=== PATIENT | male | born 1950 | race Caucasian/White ===

== ENCOUNTER → 2019-04-21 08:46 | Outpatient (CLI) | payer OTHER, SELFPAY ==
[2019-04-21 10:55] LABS: Cholesterol 220 mg/dL (140-199); HDL Cholesterol 79 mg/dL (40-60); LDL Cholesterol Calculated 129 mg/dL (<100); Triglycerides 61 mg/dL (35-150)
[2019-04-21 11:26] LABS: Prostate Specific Antigen 5.56 ng/mL (0.10-4.00)
== END ==
PROVIDERS: PCP Family Medicine; Visit Provider Family Medicine
DX: E78.5 Hyperlipidemia, unspecified (principal); Z12.5 Encounter for screening for malignant neoplasm of prostate
CPT/HCPCS: 36415; 80061; 84153

== ENCOUNTER → 2020-03-31 16:29 | Outpatient (ROUT) | payer OTHER, SELFPAY ==
[2020-03-31 17:13] LABS: Prothrombin Time 11.1 SECONDS (10.1-12.7)
== END ==
PROVIDERS: PCP Family Medicine; Visit Provider Family Medicine
DX: R04.0 Epistaxis (principal); I10 Essential (primary) hypertension
CPT/HCPCS: 85610

== ENCOUNTER → 2020-06-21 15:21 | Outpatient (CLI) | payer OTHER, SELFPAY ==
[2020-06-21 16:44] LABS: COVID19 -Nasal RAPID Negative (Negative)
== END ==
PROVIDERS: PCP Family Medicine; Visit Provider Physician Assistant
DX: Z11.59 Encounter for screening for other viral diseases (principal)
CPT/HCPCS: 87635

== ENCOUNTER 2020-06-23 12:56 | Day surgery (SDC) | payer OTHER, SELFPAY ==
[2020-06-23] VITALS (7 sets, daily range): BP systolic 120–159; BP diastolic 69–89; PULSE 64–80; RESP 12–18; TEMP 36.2–36.9; O2SAT 98–100; BMI 22.3
--- NOTE | 2020-06-23 12:27 | PM.HP.1 ---
History of Present Illness History of Present Illness Date Patient Seen: 06/23/20 Chief complaint: SCREENING COLONOSCOPY Narrative: 69 year old male comes in today for consideration of a screening colonoscopy. Last colonoscopy in 2012 significant for a cecal 1 mm tubular adenoma and hyperplastic polyp at 25 cm. There have been no lower GI symptoms suggesting disease such as change in bowel habits, bleeding, abdominal pain or anemia. There's been no family history of colon cancer or colon polyps. Overall health issues have been stable, including no major cardiac events for at least 6 weeks. PCP: Dr. Castillo Past medical history: Hypertension Hyperlipidemia GERD BPH Alcohol abuse Basal cell carcinoma Anemia, macrocytic Dupuytren's contracture Family history: No colon cancer colon polyps Surgical history: Colonoscopy, 2013, polyp x2 Social history: Beverage salesman, . Meds Home Medications and Allergies Home Medications Medication Instructions Recorded Confirmed Type atorvastatin 20 mg PO DAILY 06/23/20 06/23/20 History losartan 25 mg PO DAILY 06/23/20 06/23/20 History tamsulosin 0.4 mg PO DAILY 06/23/20 06/23/20 History Allergies Allergy/AdvReac Type Severity Reaction Status Date / Time No Known Drug Allergies Allergy Verified 06/23/20 13:02 Review of Systems Review of Systems ROS: Yes All systems reviewed with the patient and are negative except as otherwise documented Exam Narrative Exam Narrative: GENERAL: Alert and oriented, appearing stated age and in no acute distress. HEENT: Head normocephalic/atraumatic. Pupils equal, round, and reactive to light and accomodation. Extraocular muscles intact. Tympanic membranes clear. Nasal mucosa moist, septum midline. Oral mucosa moist, no lesions. Neck soft and supple, no lymphadenopathy. LUNGS: Clear to ausculation bilaterally, no wheezes, rhonchi or rales. CV: Normal S1 and S2 with regular rate and rhythm, no audible murmurs, rubs or gallops. ABDOMEN: Soft, non-tender, non-distended, no organomegaly. Positive bowel sounds. EXTREMITIES: No clubbing, cyanosis, or edema. NEURO: Cranial nerves II through XII grossly intact, no focal deficits. PSYCH: Alert and oriented x 3. SKIN: No concerning lesions. Assessment & Plan Assessment & Plan narrative: 1. History of colon polyps 2. Screening for colon cancer Plan for colonoscopy. The nature and character of the procedure as well as anticipated results were discussed. The possibility of not completing the procedure was also discussed. Possible complications including aspiration pneumonia, bleeding, perforation and reaction to medications either for sedation or preparation and missed lesions were discussed. Questions were answered and proceeding to the colonoscopy was elected. Informed consent signed. I sincerely appreciate the referral allowing me to participate in this patient's care. Please contact me with any questions or concerns.
--- NOTE | 2020-06-23 12:32 | PM.OP.ENDO ---
Operative Date/Time/Diagnoses Date of procedure: 06/23/20 Procedure Notes SCOAP/Timeout: 2:49 p.m. Procedure in detail: ENDOSCOPIST: Christy Raza MD Sedation RN: Loretta Starr RN Sedation start time: 2:50 p.m. Sedation end time: 3:08 p.m. PROCEDURE: Colonoscopy INDICATIONS: 1. History of colon polyps 2. Screening for colon cancer MEDICATION: Levsin 0.125 mg sublingual, incremental doses of Versed and fentanyl until appropriate level sedation achieved. ASA CLASS: 2 CECAL WITHDRAWAL TIME: 10 minutes COMPLICATIONS: None. EXTENT OF PROCEDURE: Cecum. QUALITY OF PREP: Good with portions of liquid stool. PROCEDURE: Prior to insertion of the colonoscope, a digital rectal examination was accomplished with circumferential palpation of the distal rectal mucosa without significant findings being noted. The high-definition colonoscope was passed into the rectum in the usual fashion and advanced over to the cecum without difficulty. The ileocecal valve, appendiceal stoma, and medial wall all could be inspected and no abnormalities were seen. ASCENDING COLON: As the colonoscope was withdrawn, care was taken to expose and inspect the haustral folds and no abnormalities were seen. HEPATIC FLEXURE: Normal, no polyps, diverticula or other abnormalities. TRANSVERSE COLON: Normal, no polyps, diverticula or other abnormalities. DESCENDING COLON: Normal, no polyps, diverticula or other abnormalities. SIGMOID COLON: Normal, no polyps, diverticula or other abnormalities. RECTUM: Normal. J maneuver was produced. There was no significant perianal disease. The J maneuver was broken. The remainder of the rectum was inspected and there was [] no external hemorrhoid disease. The scope was withdrawn. IMPRESSION: 1. Normal colonoscopy PLAN: 1. Repeat colonoscopy in 5-10 years. The possibility of a missed lesion including a malignancy has been discussed with the patient previously. Potential alarm symptoms have been discussed and should be reported immediately.
[2020-06-23] MEDS: HYOSCYAMINE 0.125 MG TABLET PO (13:13)
[2020-06-23] MEDS: LACTATED RINGERS 1,000 ML 200 ML IV (13:34)
[2020-06-23] MEDS: fentaNYL 250 MCG/5 ML INJ IV (15:00)
[2020-06-23] MEDS: MIDAZOLAM 5 MG/5 ML VIAL IV (15:01)
== END 2020-06-23 15:49 | disposition home or self-care (01) ==
PROVIDERS: PCP Family Medicine; Referring Provider Student in an Organized Health Care Education/Training Program; Visit Provider Student in an Organized Health Care Education/Training Program
PROC: 0DJD8ZZ Inspection of Lower Intestinal Tract, Via Natural or Artificial Opening Endoscopic (ICD-10-PCS; CPT 45378; principal; 2020-06-23 14:30)
DX: Z12.11 Encounter for screening for malignant neoplasm of colon (principal); Z86.010 Personal history of colon polyps; I10 Essential (primary) hypertension; E78.5 Hyperlipidemia, unspecified; K21.9 Gastro-esophageal reflux disease without esophagitis
CPT/HCPCS: G0105; J2250; J3010

== ENCOUNTER → 2021-04-16 08:54 | Outpatient (CLI) | payer OTHER, SELFPAY ==
[2021-04-16 10:53] LABS: Prostate Specific Antigen 2.59 ng/mL (0.10-4.00)
== END ==
PROVIDERS: Referring Provider Specialist; Visit Provider Specialist
DX: R97.20 Elevated prostate specific antigen [PSA] (principal)
CPT/HCPCS: 36415; 84153

== ENCOUNTER → 2021-08-07 10:13 | Outpatient (CLI) | payer OTHER, SELFPAY ==
[2021-08-07 10:45] LABS: Add Manual Diff / Slide Review NO; Basophils Absolute Auto 100 /uL (0-100); Basophils Percent Auto 1.1 % (0-2); Eosinophils Absolute Auto 300 /uL (0-450); Hematocrit 43.6 % (41-53); Hemoglobin 14.6 g/dL (13.5-17.5); Lymphocytes Absolute Auto 1600 /uL (1100-4500); Lymphocytes Percent Auto 29.7 % (25-40); Mean Corpuscular HGB Conc 33.5 % (30-36); Mean Corpuscular Hemoglobin 34.2 PG (26-34); Mean Corpuscular Volume 102.2 fL (80-100); Monocytes Absolute Auto 600 /uL (0-900); Monocytes Percent Auto 10.9 % (3-14); Neutrophils Absolute Auto 2900 /uL (1500-7000); Neutrophils Percent Auto 53.3 % (50-75); Platelet Count 188 X10^3/uL (150-400); Red Blood Cell Count 4.27 X10^6/uL (4.5-5.9); Red Cell Distribution Width 13.4 % (11.6-14.8); White Blood Cell Count 5.4 X10^3/uL (4.5-11.0)
[2021-08-07 11:01] LABS: Alanine Aminotransferase 22 IU/L (<50); Albumin 4.6 g/dL (3.5-5.0); Albumin Globulin Ratio 1.4 (1.0-2.8); Alkaline Phosphatase 54 U/L (38-126); Aspartate Aminotransferase 31 IU/L (17-59); BUN Creatinine Ratio 13.2 (6-22); Blood Urea Nitrogen 15 mg/dL (9-20); Calcium 9.8 mg/dL (8.4-10.2); Carbon Dioxide 30 mmol/L (22-32); Chloride 105 mmol/L (98-107); Cholesterol 248 mg/dL (140-199); Estimated Glomerular Filt Rate > 60.0 mL/min (>60); Globulin 3.3 g/dL (1.7-4.1); Glucose 111 mg/dL (80-110); HDL Cholesterol 94 mg/dL (40-60); HEMOLYSIS < 15 (0-50); LDL Cholesterol Calculated 140 mg/dL (<100); Potassium 4.5 mmol/L (3.4-5.1); Sodium 142 mmol/L (137-145); Total Protein 7.9 g/dL (6.3-8.2); Triglycerides 70 mg/dL (35-150)
[2021-08-07 11:31] LABS: Prostate Specific Antigen Scrn 2.36 ng/mL (0.1-4.0)
== END ==
PROVIDERS: PCP Family Medicine; Referring Provider Family Medicine; Visit Provider Family Medicine
DX: I10 Essential (primary) hypertension (principal); Z12.5 Encounter for screening for malignant neoplasm of prostate; D64.9 Anemia, unspecified; E78.5 Hyperlipidemia, unspecified
CPT/HCPCS: 36415; 80053; 80061; 84443; 85025; G0103

== ENCOUNTER → 2021-10-16 09:10 | Outpatient (CLI) | payer OTHER, SELFPAY ==
[2021-10-16 11:53] LABS: Prostate Specific Antigen 1.79 ng/mL (0.10-4.00)
== END ==
PROVIDERS: PCP Family Medicine; Referring Provider Specialist; Visit Provider Specialist
DX: N40.1 Benign prostatic hyperplasia with lower urinary tract symptoms (principal); N13.8 Other obstructive and reflux uropathy; R97.20 Elevated prostate specific antigen [PSA]
CPT/HCPCS: 36415; 84153

== ENCOUNTER → 2022-03-04 17:40 | Outpatient (CLI) | payer OTHER, SELFPAY ==
--- NOTE | 2022-03-04 | DI.MRI.S_ITS ---
PROCEDURE: MR STROKE Pre- and post-contrast brain MRI, non-contrast brain MR angiogram, pre- and postcontrast neck MR angiogram INDICATIONS: APHASIA TECHNIQUE: Brain: Noncontrast axial T1 spin echo, axial T2 fast spin echo, sagittal and axial FLAIR, coronal T2 fast spin echo, axial gradient echo, axial diffusion and ADC through the brain. After the administration of contrast, axial 3D VIBE of the cranial vasculature and brain. Brain MRA: Non-contrast 3-D time of flight MR angiogram, with multiple qnxpzup-athdfovga-kujmjrpbod (MIP) reformats performed. Neck MRA: Axial and sagittal TruFISP through the neck. Coronal dynamic MR angiogram during administration of contrast in the arterial and venous phases, with 3-dimenstional vhnzjnk-zenoovxfh-qvyhpqbdjl (MIP) reformats constructed from subtraction images. COMPARISON: None. FINDINGS: Image quality: This examination is limited by involuntary motion artifact. Signal dropout can be seen along the anterior portion this scan. BRAIN: CSF spaces: Ventricles are normal in size and shape. Basal cisterns are patent. No extra-axial fluid collections. Brain: No intracranial bleeds or mass effects. Moralez-white matter interface is normal. Diffusion weighted images show no acute ischemic insults. Brainstem appears normal. Normal intravascular flow voids are present. No abnormal intracranial enhancement. Note is made of age-appropriate brain parenchymal volume loss and chronic small vessel ischemic changes. Skull and face: Calvarial marrow signal is normal. Orbits appear normal. There is an enhancing 8 mm scalp lesion seen on the right superiorly, as on series 35, image 181 and on series 10 image 12. Sinuses: Sinuses and mastoids are clear. BRAIN MR ANGIOGRAM: Anterior circulation: Intracranial internal carotid arteries are normal in size and enhancement. The flow within the paired anterior cerebral arteries is normal and symmetric. The flow within the middle cerebral arteries is normal and symmetric. The anterior communicating artery is seen. No stenoses, occlusions, or aneurysms. Posterior circulation: The visualized portions of the vertebral arteries demonstrate normal caliber, and join to form a normal appearing basilar artery. The flow within the posterior cerebral arteries is normal and symmetric. No stenoses, occlusions, or aneurysms. NECK MR ANGIOGRAM: Carotids: Great vessels demonstrate a conventional anatomy as they arise from the aortic arch. The origins of the common carotid arteries appear patent. The calibers and courses of both common carotid arteries are normal. The bifurcation regions appear normal bilaterally. The internal carotid arteries demonstrate normal course and caliber. Posterior circulation: There is at least 50% narrowing seen involving the origin the left vertebral artery. The right vertebral artery origin is within normal limits. The more distal vertebral arteries are unremarkable. Miscellaneous: Subclavian arteries appear patent. Pre-contrast images through the neck show no soft tissue abnormalities. IMPRESSION: BRAIN MRI: No findings of acute or subacute infarction can be seen. An 8 mm enhancing scalp lesion can be seen on the right superiorly. Please correlate with physical examination findings. BRAIN MR ANGIOGRAM: No significant intracranial arterial abnormality is seen. NECK MR ANGIOGRAM: No significant internal carotid stenosis can be seen. There is at least 50% narrowing seen involving the origin the left vertebral artery. Dictated by: Gilbert Sterling M.D. on 03/04/2022 at 18:47 Approved by: Gilbert Sterling M.D. on 03/04/2022 at 18:52
== END ==
PROVIDERS: PCP Family Medicine; Referring Provider Family Medicine; Visit Provider Family Medicine
DX: I65.02 Occlusion and stenosis of left vertebral artery (principal); R47.01 Aphasia; R20.2 Paresthesia of skin; R22.0 Localized swelling, mass and lump, head
CPT/HCPCS: 70548; 70553

== ENCOUNTER → 2022-03-31 07:55 | Outpatient (CLI) | payer OTHER, SELFPAY ==
--- NOTE | 2022-03-31 07:56 | DI.ECHO.S_ITS ---
[facility] +---------+ : : [address] : [place] : : : : [id number] : : : : Phone: [phone]+ Echocardiogram Report + + :Name: AIDE ESPAÑA Study Date: 03/31/2022 Height: 71 in : :[facility] ReadingLocation: Weight: 170 lb : : Gender: Male BSA: 2.0 m2 : :: 1950 Age: 71 yrs BP: 183/98 mmHg: :Reason For Study: APHASIA : :Ordering Physician: FEDE, : :LUISANA Performed By: Kristy Calderon : :Referring: LUISANA MISTRY : + + Interpretation Summary The left ventricle is normal in size. The ejection fraction is estimated to be 55-60%. The right ventricle is normal in size and function. No significant valvular pathology seen. Mild atherosclerotic plaque(s) in the aortic arch. The IVC is of normal diameter and collapses greater than 50% with a sniff. This suggests a low right atrial pressure of 3 mm Hg. Procedure: A two-dimensional transthoracic echocardiogram with color flow and Doppler was performed. The study quality was technically difficult. There is no prior echocardiogram noted for this patient. The patient was in sinus rhythm with heart rates between 58-68 bpm during the exam. Left Ventricle: The left ventricle is normal in size. Left ventricular wall thickness is mildly increased. There is no thrombus. The ejection fraction is estimated to be 55-60%. There is basal inferior wall hypokinesis. There is basal inferoseptal wall hypokinesis. Diastolic parameters suggest a relaxation abnormality of the left ventricle, consistent with probable normal filling pressures. Right Ventricle: The right ventricle is normal in size and function. Atria: Both atria are normal in size. There is no Doppler evidence for an interatrial shunt. Mitral Valve: There is mild mitral annular calcification. There is trace mitral regurgitation. Aortic Valve: The aortic valve is trileaflet. The aortic valve opens well. There is no aortic valve stenosis. No aortic regurgitation is present. Tricuspid Valve: The tricuspid valve is normal in structure and function. There is trace tricuspid regurgitation. Pulmonary artery pressures cannot be estimated because of the lack of a measurable TR jet velocity. Pulmonic Valve: The pulmonic valve is not well seen, but is grossly normal. There is no pulmonic valvular regurgitation. Great Vessels: The aortic root is normal size. The dimensions of the ascending aorta are normal. Mild atherosclerotic plaque(s) in the aortic arch. The IVC is of normal diameter and collapses greater than 50% with a sniff. This suggests a low right atrial pressure of 3 mm Hg. Pericardium/ Pleura There is no pericardial effusion. There is no pleural effusion. MMode/2D Measurements & Calculations LVIDd: 4.3 cm LVOT diam: 2.3 cm LVIDs: 2.8 cm Ao root diam: 3.5 cm FS: 34.7 % asc Aorta Diam: 3.0 cm EPSS: 0.97 cm Ao Arch Diam (Prox Trans): 3.5 cm IVSd: 1.2 cm LVPWd: 0.82 cm LV lopez. diameter/BSA (cm/m^2): 2.2 LV sys. diameter/BSA (cm/m^2): 1.4 LA A2 area: 19.4 cm2 RA long axis: 4.6 cm LA A4 area: 14.8 cm2 RA area: 14.9 cm2 LA length (vol): 4.5 cm RA vol: 41.1 ml LA vol: 53.9 ml RA : 20.9 ml/m2 LA vol index: 27.4 ml/m2 IVC diam: 1.4 cm RVD1 (basal): 3.5 cm RVD2 (mid): 3.2 cm TAPSE: 1.8 cm Doppler Measurements & Calculations Ao V2 max: 107.7 cm/sec LVOT Max Ammon: 71.8 cm/sec Ao V2 mean: 76.8 cm/sec LV V1 max P.1 mmHg Ao max P.6 mmHg LV V1 VTI: 17.5 cm Ao mean P.7 mmHg MARSHAL(I,D): 2.8 cm2 Ao V2 VTI: 24.9 cm MARSHAL(V,D): 2.7 cm2 sev ratio: 0.70 MARSHAL indexed to BSA (cm^2/m^2): 1.4 MV E max ammon: 78.9 cm/sec PA V2 max: 88.7 cm/sec MV A max ammon: 87.7 cm/sec PA V2 mean: 61.9 cm/sec MV E/A: 0.90 PA mean P.7 mmHg Med Peak E' Ammon: 6.3 cm/sec PA pr(Accel): 15.6 mmHg E/E' med: 12.4 Lat Peak E' Ammon: 8.8 cm/sec E/E' lat: 9.0 E/e' average: 10.7 MV dec time: 0.20 sec SV(LVOT): 70.2 ml Reading Physician:10:37 AM
== END ==
PROVIDERS: PCP Family Medicine; Referring Provider Family Medicine; Visit Provider Family Medicine
DX: I70.0 Atherosclerosis of aorta (principal); R47.01 Aphasia
CPT/HCPCS: 93306

== ENCOUNTER → 2022-04-01 07:49 | Outpatient (CLI) | payer OTHER, SELFPAY ==
--- NOTE | 2022-04-22 09:34 | P.HOLT.S_ITS ---
[facility] Report Referral & Results Date Patient Seen: 04/01/22 Requesting provider: Andrew Fuentes Indication: Aphasia Duration of monitoring (days): 14 Diary information: There were 2 patient triggered events and 2 patient diary entries. All for these patient events were associated with sinus rhythm only Data: Minimum heart rate was 51 beats per minute at 04:31 on 04/13/2022 Maximum sinus heart rate was 154 beats per minute at 16:01 on 04/07/2022 Maximum overall heart rate was 171 beats per minute at 18:17 on 04/07/2022 during a run of ventricular tachycardia Less than 1% of identified beats were ventricular or supraventricular ectopic in origin, which would classify them as rare. Patient 4 runs of SVT with the fastest being 4 beats at a rate of 171 beats per minute the longest lasting 10 beats at a rate of 117 beats per minute which suggests more atrial tachycardia rather than true SVT. There was 1 run of nonsustained monomorphic ventricular tachycardia that was 9 beats in duration at a rate of 171 beats per minute No pauses of 3 seconds or longer or episodes of atrial fibrillation identified on this study Impression: 14 day cardiac rehabilitation specialist demonstrating a single episode of ventricular tachycardia as above, very rare very brief runs of SVT as well as rare ectopic beats as above Patient events not associated with any dysrhythmia Clinical correlation suggested
== END ==
PROVIDERS: PCP Family Medicine; Referring Provider Family Medicine; Visit Provider Family Medicine
DX: R47.01 Aphasia (principal)
CPT/HCPCS: 93246; 93248

== ENCOUNTER → 2023-02-14 09:15 | Outpatient (CLI) | payer MEDICARE, SELFPAY ==
--- NOTE | 2023-02-14 09:17 | DI.MRI.S_ITS ---
PROCEDURE: MR PELVIS WO/W CON INDICATIONS: elevated PSA TECHNIQUE: Coronal HASTE, axial T1 FSE with fat saturation, 3-plane nonbreath-hold T2 FSE. After the administration of contrast, dynamic axial, delayed axial and coronal VIBE or 2-D FLASH with fat saturation through the pelvis. Optional diffusion weighted imaging and ADC may be performed. COMPARISON: None. FINDINGS: Image quality: Diffusion weighted and dynamic contrast enhanced images are diagnostic. Prostate: Gland size is 5.2 x 3.6 x 4.8 cm; ellipsoid gland volume is 47 mL. Lesion #1: Size: 2.2 x 1.1 cm Location: Right anterior transition zone/anterior fibromuscular stroma, mid gland (for example series 4, image 11) T2 signal: Lenticular homogeneous hypointensity DWI/ADC signal: Hypointense on ADC images with corresponding DWI hyperintensity DCE: Negative DASHAWN: Possible extracapsular extension anteriorly and laterally Seminal vesicle invasion: Absent PI-RADS: T2 signal - 5; ADC - 3; DCE - negative; Overall score: PI-RADS 5. Genitourinary system: Bladder wall thickness is not overtly thickened allowing for underdistended state. Distal ureters are non distended. Bowel and peritoneum: No pathologic free pelvic fluid. Inferior colon and small bowel loops are normal in caliber. Nodes and vessels: No pelvic or inguinal adenopathy by size criteria. Iliac vessels are normal in caliber. Bones: Marrow demonstrates normal overall signal, without lesions to suggest metastases. IMPRESSION: 1. A 2.2 cm lesion at the right anterior transition zone/anterior fibromuscular stroma is consistent with PI-RADS category 5. 2. No suspicious lymph nodes identified in the imaged pelvis. Dictated by: Cabrera Carrion M.D. on 02/14/2023 at 12:54 Approved by: Cabrera Carrion M.D. on 02/14/2023 at 13:17
== END ==
PROVIDERS: PCP Family Medicine; Referring Provider Specialist; Visit Provider Specialist
DX: N42.9 Disorder of prostate, unspecified (principal); R97.20 Elevated prostate specific antigen [PSA]
CPT/HCPCS: 72197; A9579

== ENCOUNTER → 2023-03-03 09:19 | Outpatient (CLI) | payer MEDICARE, SELFPAY ==
--- NOTE | 2023-03-03 | DI.RAD.S_ITS ---
PROCEDURE: XR CHEST 2V INDICATIONS: fatigue TECHNIQUE: 2 views of the chest were acquired. COMPARISON: None. FINDINGS: Surgical changes and devices: None. Lungs and pleura: Lungs are clear. No pleural effusions or pneumothorax. Mediastinum: Mediastinal contours are normal. Heart size is normal. Bones and chest wall: No suspicious bony abnormalities. Soft tissues appear unremarkable. IMPRESSION: No acute pulmonary process. Dictated by: Kimber Dunaway M.D. on 03/03/2023 at 16:33 Approved by: Kimber Dunaway M.D. on 03/03/2023 at 16:33
== END ==
PROVIDERS: PCP Family Medicine; Referring Provider Family Medicine; Visit Provider Family Medicine
DX: R53.83 Other fatigue (principal)
CPT/HCPCS: 71046

== ENCOUNTER → 2025-02-05 11:34 | Outpatient (CLI) | payer MEDICARE, OTHER, SELFPAY ==
--- NOTE | 2025-02-05 11:39 | DI.RAD.S_ITS ---
PROCEDURE: XR CHEST 2V INDICATIONS: Other fatigue TECHNIQUE: 2 views of the chest were acquired. COMPARISON: [facility], CR, XR CHEST 2V, 03/03/2023, 9:34. FINDINGS: Surgical changes and devices: None. Lungs and pleura: Lungs are clear. No pleural effusions or pneumothorax. Mediastinum: Mediastinal contours are normal. Heart size is normal. Bones and chest wall: Possible prior fracture at the left 6th rib, unchanged. Soft tissues appear unremarkable. IMPRESSION: No acute cardiopulmonary abnormality is seen. Dictated by: Faheem Sanderson M.D. on 02/05/2025 at 17:18 Approved by: Faheem Sanderson M.D. on 02/05/2025 at 17:19
== END ==
PROVIDERS: PCP Family Medicine; Referring Provider Family Medicine; Visit Provider Family Medicine
DX: R53.83 Other fatigue (principal)
CPT/HCPCS: 71046

== ENCOUNTER → 2025-05-23 10:34 | Outpatient (CLI) | payer MEDICARE, OTHER, SELFPAY ==
--- NOTE | 2025-05-23 10:35 | DI.CT.S_ITS ---
PROCEDURE: CT CHEST ABD PEL W CON INDICATIONS: 74 y/o M w/ newly diagnosed prostate cancer, eval for mets TECHNIQUE: After the administration of intravenous contrast, 5 mm thick sections acquired from the lung apices to the symphysis. 5 mm coronal and sagittal reformats were performed, with additional 7 mm MIP reformats through the lungs. For radiation dose reduction, the following was used: automated exposure control, adjustment of mA and/or kV according to patient size. COMPARISON: None. FINDINGS: Image quality: Excellent. CHEST: Lower Neck: No enlarged lymph nodes. Thyroid: Normal CT appearance. Axillae: No enlarged lymph nodes. Chest Wall: No suspicious lesions. Lungs and Pleura: No nodule, mass, ground-glass opacity, or consolidationCentral and peripheral airways are normal without bronchial wall thickening or bronchiectasis. No pleural effusions or pleural calcifications. Heart: Heart size is normal. No pericardial effusion. Moderate coronary artery calcification. Thoracic Vessels: The aorta and pulmonary arteries demonstrate normal size. Mild aortic arch calcification. Mediastinum and Sandra: No enlarged lymph nodes. Esophagus: No wall thickening. No hiatal hernia. ABDOMEN: Liver: No solid mass. Gallbladder: No wall thickening or calcified stones. Biliary ducts: No biliary dilation. Pancreas: Normal size and morphology without visible ductal dilatation or inflammation. Spleen: Size is within normal limits. Adrenal Glands: No adrenal nodules. Kidneys and Ureters: Symmetric enhancement. No nephrolithiasis or hydronephrosis. No visible mass or cyst requiring follow up. No hydroureter. Stomach and Bowel: Stomach and small bowel loops are normal caliber. Normal appendix. Normal quantity of colonic stool. No suspicious colon wall thickening or inflammation. Peritoneum: No abnormal intraperitoneal fluid. No free air. Ventral Wall: No significant ventral hernia. Abdominal Nodes: No retroperitoneal or mesenteric adenopathy by size criteria. Largest retroperitoneal lymph node is at the level of the pancreatic head in the aortocaval region measuring 8 mm in short axis, 2/116. Shotty lymph nodes are present in the periportal and mesenteric regions. Vessels: The abdominal aorta, IVC, and portal vein are of normal caliber. Mild abdominal aortic atherosclerotic calcification. PELVIS: Pelvic Organs: Enlarged prostate gland mildly indenting on the bladder base. Surrounding fat planes are grossly preserved, though not well assessed by CT. Bladder: Thickened urinary bladder wall may be due to under distension and/or chronic outlet obstruction. Pelvic Nodes: Borderline enlarged, but benign-appearing inguinal and iliac chain nodes. No suspicious bulky pelvic adenopathy. Miscellaneous: No inguinal hernias are seen. Bones: No suspicious bone lesions. Mild degenerative disc and endplate changes in the lumbar spine. IMPRESSION: Enlarged prostate gland. Known prostate primary malignancy. No evidence of metastatic disease in the chest, abdomen, or pelvis. Borderline abdominal pelvic lymph nodes as described, most likely reactive and physiologic, less likely metastatic. Dictated by: Adriana Vaughan M.D. on 05/24/2025 at 13:30 Approved by: Adriana Vaughan M.D. on 05/24/2025 at 13:39
--- NOTE | 2025-05-23 10:35 | DI.NM.S_ITS ---
PROCEDURE: NM BONE SCAN WHOLE BODY RADIOPHARMACEUTICAL: 21.7 mCi Tc-99m MDP IV. INDICATIONS: 74 y/o M w/ newly diagnosed prostate cancer, eval for mets TECHNIQUE: Delayed whole-body scintigrams were obtained approximately 3-4 hours after intravenous injection of radiotracer. Anterior and posterior views were acquired from vertex to feet. Additional left and right oblique views of the pelvis were obtained. COMPARISON: [facility], CT, CT CHEST ABD PEL W CON, 05/23/2025, 11:46. FINDINGS: Normal soft tissue, renal and bladder activity. Multifocal foci of uptake in the cervical, thoracic and lumbar spine most consistent with degenerative disease. Focal areas of uptake noted in the right knee also likely degenerative in origin. No suspicious focal activity concerning for metastatic disease. IMPRESSION: No scintigraphic findings concerning for metastatic disease Dictated by: Didi Reagan M.D. on 05/23/2025 at 16:34 Approved by: Didi Reagan M.D. on 05/23/2025 at 16:38
[2025-05-23 11:35] LABS: Estimated Glomerular Filt Rate > 60 mL/min (>60)
== END ==
LOC: NUCM 10:35
PROVIDERS: PCP Family Medicine; Referring Provider Urology; Visit Provider Urology
DX: C61 Malignant neoplasm of prostate (principal); N40.0 Benign prostatic hyperplasia without lower urinary tract symptoms
CPT/HCPCS: 36415; 71260; 74177; 78306; 82565; A9503; Q9967